=== PATIENT | male | born 1975 | race Caucasian/White ===

== ENCOUNTER 2018-06-26 08:58 | Outpatient (CLI) | payer OTHER ==
--- NOTE | 2018-06-26 15:41 | MRI Report ---
Reason: SHOULDER PAIN,LEFT,CALCIFIC TENDINITIS OF LEFT HILARIA Procedure Date: 06/26/2018 Accession Number: [id number] / [id number] Procedure: MRI - Shoulder LT W/O CPT Code: FULL RESULT: EXAM: LEFT SHOULDER MRI WITHOUT CONTRAST EXAM DATE: 06/26/2018 10:04 AM. CLINICAL HISTORY: Left shoulder pain. Calcific tendinosis. COMPARISON: None. TECHNIQUE: Multiplanar, multisequence T1-weighted and fluid-sensitive sequences of the shoulder without contrast. Other: None. FINDINGS: Acromioclavicular Region: The acromion is type I. The acromioclavicular joint is unremarkable. The coracoacromial and coracoclavicular ligaments are intact. No subacromial/subdeltoid bursal fluid. Glenohumeral Region: No subluxation. No effusion or loose bodies. The articular cartilage is unremarkable. The glenohumeral ligaments and joint capsule are unremarkable. Bone Marrow: No fracture, marrow edema or bone lesions. Labrum: The labrum is unremarkable on this nonarthrographic study. Musculature/Rotator Cuff: Tendinosis and low-grade partial thickness intrasubstance tear at the supraspinatus tendon. The infraspinatus, teres minor, and subscapularis tendons are unremarkable. No edema or fatty atrophy. Biceps Tendon: The long head of the biceps tendon and biceps braulio are intact. Other: The subcutaneous tissues are unremarkable. IMPRESSION: 1. Tendinosis and a low-grade partial thickness intrasubstance tear at the supraspinatus tendon. [facility] MUSCULOSKELETAL RADIOLOGY SECTION
== END 2018-06-26 08:59 | disposition home or self-care (01) ==
LOC: DI 08:58
PROVIDERS: ATTEND Physician Assistant Medical
DX: M75.102 Unspecified rotator cuff tear or rupture of left shoulder, not specified as traumatic (principal)

== ENCOUNTER 2018-07-23 13:29 | Outpatient (CLI) | payer OTHER | END 2018-07-23 13:30 | disposition home or self-care (01) | LOC: SC 13:29 | PROVIDERS: ATTEND Internal Medicine Pulmonary Disease | DX: F51.04 Psychophysiologic insomnia (principal) | CPT/HCPCS: 99203; 99212 ==

== ENCOUNTER 2018-11-25 | Outpatient (CLI) | payer OTHER | END 2018-11-25 13:17 | disposition home or self-care (01) | DX: F51.04 Psychophysiologic insomnia (principal) | CPT/HCPCS: 99212; 99213 ==